=== PATIENT | male | born 1965 | race Caucasian/White ===

== ENCOUNTER 2024-01-12 02:29 | Emergency (ER) | payer OTHER, SELFPAY ==
[2024-01-12 02:32] VITALS: BP 131/88
--- NOTE | 2024-01-12 02:55 | ED.GENMED ---
History of Present Illness
General
Chief Complaint: Fever
Source: patient
Time Seen by Provider: 01/12/24 02:43
Travel History
Have you had any contact with someone who has COVID-19?: No
Do you have any symptoms of coronavirus? Fever > 100 degrees, chills, cough, shortness of breath, sore throat, loss of taste or smell, muscle aches, or headache?: No
History of Present Illness
History of Present Illness:
58-year-old male presents to the emergency room for evaluation of fever. Patient states he began having fever about 5 days ago. His temperatures been up to 102. He was seen by his PCP and had a negative flu and COVID tests. He was started on
Augmentin. Patient noted some dysuria and frequency tonight prompting him to come get checked out. Patient is tolerating oral intake. He has been taking Tylenol and ibuprofen for fever.
Past History
Past History
ED Past Medical History: Hypercholesterolemia and Other
ED Past Surgical History: None
Social History
Tobacco: Non-smoker
Alcohol: Occasional
Drug: None
Personal:
Living: with family
Employment: Employed
Family History
Family History: CAD
Phy Exam
Physical Exam
Physical Exam:
General: Awake, Alert, Oriented X3. No acute distress.
Vitals: unremarkable
Head: Atraumatic
Eyes: Pupils equal, EOMI
Throat: Airway intact, no exudates
Neck: Trachea midline
Lungs: Clear and equal b/l
Heart: Regular rate, no murmurs
Abd: Soft, no significant tenderness to palpation, No pulsatile mass
Neuro: Nonfocal
Skin: Warm, dry, no rash
Extremities: pulses equal b/l, no edema
Course
Orders/Labs/Results
Orders:
Orders
01/12/24 02:44
IV Insert/Care/Rem.- Treatment PRN
01/12/24 03:03
COVID-19 Antigen Urgent
Source: Nasal Swab
Complete Blood Count/With Diff Urgent
Comprehensive Metabolic Panel Urgent
Lactic Acid Q4H
Comment: ON ICE, CANCEL 2ND ORDER IF FIRST LACTIC ACID LEVEL <2
Urinalysis Reflex To Culture Urgent
Date Specimen was Collected: 01/12/24
Time Specimen was Collected: 02:44
Urine Microscopic Reflex Cult Urgent
Blood Culture Q30M
JUNIOR Source: Blood/Venous
Specimen Description:
Comment: FROM 2 SEPARATE SITES
INF RAPID [Influenza A+B Rapid Molecular] Urgent
JUNIOR Source: Nasal Swab
Specimen Description:
01/12/24 03:05
Blood Culture Q30M
JUNIOR Source: Blood/Venous
Specimen Description:
Comment: FROM 2 SEPARATE SITES
01/12/24 03:45
Acetaminophen [Tylenol] 650 mg PO NOW STA
01/12/24 04:58
CT Abd/pelvis W Iv Cont Urgent
Comment:
Reason For Exam: left lower abd pain
Abnormal Lab Results
01/12/24
03:03
WBC 13.0 H 10^3/uL
(4.8-10.8)
MCH 33.0 H pg
(27.0-31.0)
Absolute Neuts (auto) 9.9 H 10^3/uL
(1.4-6.5)
Absolute Monos (auto) 1.3 H 10^3/uL
(0.1-0.6)
Neutrophils % 75.8 H %
(42.2-75.2)
Lymphocytes % 12.4 L %
(20.5-51.1)
Monocytes % 9.8 H %
(1.7-9.3)
Urine Ketones Trace A
(Negative)
Ur Occult Blood Reflex 2+ A
(Negative)
Leukocyte Esterase Rfl Trace A
(Negative)
Urine RBC 7-10 A /HPF
(0-2)
Urine Bacteria (Reflex) Few A
(Negative)
01/12/24 03:03
01/12/24 03:03
Vital Signs
Initial and Last Documented VS:
Initial Vital Signs
Temp Pulse Resp BP Pulse Ox
99.8 F 83 16 131/88 99
01/12/24 02:32 01/12/24 02:32 01/12/24 02:32 01/12/24 02:32 01/12/24 02:32
Last Documented Vital Signs
Temp Pulse Resp BP Pulse Ox
99.7 F 69 16 118/74 96
01/12/24 05:37 01/12/24 05:37 01/12/24 05:37 01/12/24 05:37 01/12/24 05:37
MDM/Problems Addressed
Differential Diagnosis Includes:
uti, diverticulitis, viral illness,
MDM/Problems Addressed:
Patient presents with persistent fever. He has been taking Augmentin which has not helped. Labs show a mildly elevated white blood cell count with a mild left shift. Chemistries are unremarkable. Urinalysis shows an elevated number of white
blood cells (6-10 per high-power field). He is urine is positive for leukocyte esterase as well as some blood. CT was obtained which shows an enlarged prostate and what appears to be chronic bladder outlet obstruction. No other source of
infection is noted. Given patient did have symptoms of dysuria and burning the abnormal urinalysis is likely consistent with a UTI. Prostatitis is on the differential. Will start Levaquin and prescribe it for 2 weeks. Recommend he follow-up with
his urologist.
*Radiology
Radiology exam reviewed: preliminary read by ED provider ([facility] report reviewed)
*Critical Care Note
Total Time (30-74mins, 75-104mins- exclusive of procedures): Not Applicable
ED Attending Note
-
Portions of this chart may have been created with voice recognition software.� Occasional wrong word or��sound alike� substitutions may have occurred due to the inherent limitations of voice recognition software.
Discharge Plan
Departure
Patient Disposition: Home (Routine Discharge)
Date of Disposition: 01/12/24
Time of Disposition: 06:25
Patient with high blood pressure during this ER visit?: No
Condition: Good
Discharge Problem:
Fever
Instructions: Fever, Adult (DC)
Prescriptions:
New
levofloxacin 500 mg tablet
500 mg PO DAILY 14 Days Qty: 14 0RF
No Action
atorvastatin 20 mg Tablet
20 mg PO DAILY
diazepam [Valium] 5 mg Tablet
5 mg PO TID PRN (Reason: anxiety)
Patient Comments:
last taken months ago
tadalafil [Cialis] 5 mg Tablet
5 mg PO DAILY
cyclobenzaprine [Flexeril] 10 mg Tablet
10 mg PO TID PRN (Reason: pain)
zolpidem [Ambien] 5 mg Tablet
10 mg PO HS PRN (Reason: sleep)
pantoprazole 40 mg Tablet,Delayed Release (Dr/Ec)
40 mg PO DAILY
Referrals:
Jennifer Palacios MD [Family Provider] -
Darek Ivory Jr., MD [Active] -
Activity Restrictions/Additional Instructions:
Your CT scan of the abdomen and pelvis shows you have an enlarged prostate and your urine test suggests a uti. I have changed you antibiotic to Levaquin which you should take for 2 weeks to treat uti and possible prostate infection. Please follow
up with a urologis.t
Interventions
Interventions:
*Risk Screen - Suicide Last Done: 01/12/24 02:32
*General Assessment Last Done: 01/12/24 02:32
*Neglect/Abuse Screening Last Done: 01/12/24 02:32
ED- Fall Risk Assessment Last Done: 01/12/24 03:14
*ED COVID-19 Vaccine History Last Done: 01/12/24 04:32
ED-Male Genitourinary Assessment Last Done: 01/12/24 03:14
ED- Neurological Assessment Last Done: 01/12/24 03:14
ED-Skin Assessment Last Done: 01/12/24 03:14
Discharge Date and Time
Print Language: DIVEHI
[2024-01-12 03:17] LABS: % Basophils 0.6 % (0-2); % Eosinophils 1.1 % (0-6); % Immature Granulocytes 0.3 % (0-0.5); % Lymphocytes 12.4 % (20.5-51.1); % Monocytes 9.8 % (1.7-9.3); % Neutrophils 75.8 % (42.2-75.2); Absolute Basophils 0.1 10^3/uL (0-0.2); Absolute Eosinophils 0.1 10^3/uL (0-0.7); Absolute Lymphocytes 1.6 10^3/uL (1.2-3.4); Absolute Monocytes 1.3 10^3/uL (0.1-0.6); Absolute Neutrophils 9.9 10^3/uL (1.4-6.5); Hematocrit 43.1 % (39.0-52.0); Hemoglobin 15.5 g/dL (13.0-18.0); Mean Corpuscular Volume 91.7 fL (80.0-94.0); Mean Platelet Volume 8.9 fL (7.4-10.4); Nucleated Red Blood Cells % 0 % (-); Platelet Count 268 10^3/uL (130-400); Red Cell Dist. Width 12.3 % (11.5-14.5)
[2024-01-12 03:18] LABS: Urine Albumin Negative (Neg - Trace); Urine Bilirubin Negative (Negative); Urine Character Clear (Clear); Urine Color Yellow; Urine Glucose Negative (Negative); Urine Ketone Trace (Negative); Urine Leukocyte Trace (Negative); Urine Nitrite Negative (Negative); Urine Occult Blood 2+ (Negative); Urine Urobilinogen Negative (Neg - 1+)
[2024-01-12 03:31] LABS: COVID-19 Antigen Negative (Negative)
[2024-01-12 03:35] LABS: Lactic Acid 0.9 mmol/L (0.7-2.0)
[2024-01-12 03:36] LABS: ALT (SGPT) 45 U/L (0-50); AST (SGOT) 41 U/L (17-59); Albumin 4.2 g/dl (3.5-5.0); Alkaline Phosphatase 111 U/L (38-126); Blood Urea Nitrogen 18 mg/dl (9-20); Calcium 9.5 mg/dl (8.4-10.2); Carbon Dioxide 26 mmol/L (22-30); Chloride 105 mmol/L (98-107); Glucose 76 mg/dl (70-99); Potassium 3.9 mmol/L (3.5-5.1); Sodium 143 mmol/L (135-145); Total Bilirubin 0.9 mg/dl (0.2-1.3); eGFR > 60.00
[2024-01-12 03:37] LABS: Urine Bacteria Few (Negative); Urine Squamous Cell 0-2 /LPF (Few)
[2024-01-12 03:39] VITALS: BP 128/73
[2024-01-12] MEDS: TYLENOL 650 MG PO (03:50)
[2024-01-12 04:31] VITALS: BP 108/62
[2024-01-12 05:37] VITALS: BP 118/74
== END 2024-01-12 06:40 | disposition home or self-care (01) ==
LOC: EMR 02:29
PROVIDERS: EMERGENCY PHYSICIAN Emergency Medicine; FAMILY PHYSICIAN Family Medicine
DX: R50.9 Fever, unspecified (principal)
CPT/HCPCS: 99285; 74177; 80053; 81003; 81015; 83605; 85025; 87040; 87502; 87811; Q9967

== ENCOUNTER → 2024-06-06 11:05 | Outpatient (REF) | payer OTHER, SELFPAY | LOC: RAD 11:05 | PROVIDERS: ATTENDING PHYSICIAN Surgery; FAMILY PHYSICIAN Family Medicine | DX: N20.1 Calculus of ureter (principal) | CPT/HCPCS: 74018 ==

== ENCOUNTER → 2025-04-14 16:32 | Outpatient (REF) | payer OTHER, SELFPAY | LOC: RAD 16:32 | PROVIDERS: ATTENDING PHYSICIAN Surgery; FAMILY PHYSICIAN Family Medicine | DX: N39.0 Urinary tract infection, site not specified (principal) | CPT/HCPCS: 74177; Q9967 ==